=== PATIENT | female | born 1935 | race Caucasian/White ===

== ENCOUNTER 2016-11-24 20:28 | Emergency (ER) | payer OTHER ==
[2016-11-24] MEDS ORDERED: IPRATROPIUM/ALBUTEROL 3 ML DEYVIAL ONE (20:46)
[2016-11-24] MEDS ORDERED: predniSONE 20 MG TAB PO ONE (21:03)
[2016-11-24] MEDS ORDERED: ALBUTEROL 3 ML DEYVIAL IH ONE (21:03)
--- NOTE | 2016-11-24 21:05 | EDPHY ---
H & P Chief Complaint Nursing Narrative: cough since yesterday, audible wheezes heard in triage, tachypneic Time Seen by Provider: 11/24/16 20:56 HPI/ROS: CHIEF COMPLAINT: Shortness of breath HISTORY OF PRESENT ILLNESS: Patient is an 81-year-old female who comes to the Urgent Care complaining of dyspnea. She has had the symptoms since yesterday which she states she began having a cold. She had a coughing took Mucinex but feels that it is not worked. She has not had a fever. She has history of COPD and takes Advair daily. She does not regularly use her rescue inhaler. She does not wear oxygen at home. She denies having any chest pain. REVIEW OF SYSTEMS: Constitutional: denies: chills, fever, recent illness, recent injury EENTM: denies: blurred vision, double vision, nose congestion Respiratory: See HPI Cardiac: denies: chest pain, irregular heart rate, lightheadedness, palpitations Gastrointestinal/Abdominal: denies: abdominal pain, diarrhea, nausea, vomiting, blood streaked stools Genitourinary: denies: dysuria, frequency, hematuria, pain Musculoskeletal: denies: joint pain, muscle pain Skin: denies: lesions, rash, jaundice, bruising Neurological: denies: headache, numbness, paresthesia, tingling, dizziness, weakness Hematologic/Lymphatic: denies: blood clots, easy bleeding, easy bruising Immunologic/allergic: denies: HIV/AIDS, transplant EXAM: GENERAL: Well-appearing, well-nourished and in no acute distress. HEAD: Atraumatic, normocephalic. EYES: Pupils equal round and reactive to light, extraocular movements intact, sclera anicteric, conjunctiva are normal. ENT: TMs normal, nares patent, oropharynx clear without exudates. Moist mucous membranes. NECK: Normal range of motion, supple without lymphadenopathy or JVD. LUNGS: Expiratory wheezing, left lower lobe rhonchi. HEART: Regular rate and rhythm without murmurs, rubs or gallops. ABDOMEN: Soft, nontender, normoactive bowel sounds. No guarding, no rebound. No masses appreciated. BACK: No CVA tenderness, no spinal tenderness, step-offs or deformities EXTREMITIES: Normal range of motion, no pitting or edema. No clubbing or cyanosis. NEUROLOGICAL: Cranial nerves II through XII grossly intact. Normal speech, normal gait. 5/5 strength, normal movement in all extremities, normal sensation PSYCH: Normal mood, normal affect. SKIN: Warm, dry, normal turgor, no visible rashes or lesions. Source: Patient Exam Limitations: No limitations - Medical/Surgical History Hx Asthma: No Hx Chronic Respiratory Disease: Yes Hx Diabetes: No Hx Cardiac Disease: No Hx Renal Disease: No Hx Cirrhosis: No Hx Alcoholism: No Other PMH: COPD - Family History Significant Family History: Hypertension - Social History Smoking Status: Former smoker Alcohol Use: None Drug Use: None Constitutional: Initial Vital Signs Temperature (C) 36.3 C 11/24/16 20:42 Heart Rate 93 11/24/16 20:42 Respiratory Rate 30 H 11/24/16 20:42 Blood Pressure 170/63 H 11/24/16 20:42 O2 Sat (%) 88 L 11/24/16 20:42 O2 Delivery Mode Room Air Allergies/Adverse Reactions: No Known Allergies Allergy (Unverified 02/25/11 13:46) Home Medications: Medication Instructions Recorded Advair 100/50 02/25/11 AZITHROMYCIN [Z-PACK] 250 mg PO DAILY #4 tab 11/24/16 Medical Decision Making - Diagnostics EKG Interpretation: An EKG obtained and was read and documented in trace view. Please see trace view for full reading and report. Sinus rhythm, no acute ischemic changes Imaging: X-ray: chest x-ray was obtained. I viewed the images myself on the PACS system. My interpretation of the images is: Bronchitis. The radiologist interpretation is no pneumonia. ED Course/Re-evaluation: Patient is improved after albuterol treatments. She is saturating in the mid 90s. Send her home with a take-home inhaler and on steroids and a course of azithromycin. She understands and agrees with this plan. She declines further workup or testing at this time. We discussed follow-up in 24 hours for recheck. She and her family agree. Differential Diagnosis: Partial list of the Differential diagnosis considered include but were not limited to; pneumonia, bronchitis, COPD exacerbation and although unlikely based on the history and physical exam, I also considered acute coronary disease , pulmonary embolism, pulmonary edema. I discussed these differential diagnoses and the plan with the patient as well as the usual and expected course. The patient understands that the diagnosis is provisional and that in medicine we are not always correct and that further workup is often warranted. Usual and customary warnings were given. All of the patient's questions were answered. The patient was instructed to return to the emergency department should the symptoms at all worsen or return, otherwise to followup with the physician as we discussed. - Data Points Medications Given: Discontinued Medications Albuterol (Proventil Neb) 3 ml IH EDNOW ONE Stop: 11/24/16 21:04 Last Admin: 11/24/16 21:26 Dose: 3 ml Albuterol Sulfate (Proventil Inh Prepack) 1 mdi TAKEHOME EDNOW ONE Stop: 11/24/16 21:39 Last Admin: 11/24/16 21:46 Dose: 1 mdi Azithromycin (Zithromax) 500 mg PO EDNOW ONE PRN Reason: Protocol Stop: 11/24/16 21:36 Last Admin: 11/24/16 21:46 Dose: 500 mg Prednisone (Prednisone) 60 mg PO EDNOW ONE Stop: 11/24/16 21:04 Last Admin: 11/24/16 21:20 Dose: 60 mg Departure - Departure Disposition: Home, Routine, Self-Care Clinical Impression: COPD exacerbation, Bronchitis Condition: Fair Instructions: COPD (Chronic Obstructive Pulmonary Disease) (ED), Acute Bronchitis (ED) Referrals: Adelita Davis MD [Primary Care Provider] - As per Instructions Prescriptions: AZITHROMYCIN [Z-PACK] 250 mg PO DAILY #4 tab
[2016-11-24 21:22] VITALS: TEMP 98.1
--- NOTE | 2016-11-24 21:23 | DX ---
PA and Lateral Chest Indication: Dyspnea. Cough and shortness of breath. Comparison: None Findings: The hyperinflated lungs have diffuse mild peribronchial thickening. No mass, edema, consoli dation or effusion. Heart size is upper normal for technique. Impression: COPD. No pneumonia or failure.
--- NOTE | 2016-11-24 21:23 | CPEKG ---
Heart Rate: 91 RR Interval: 659 P-R Interval: 168 QRSD Interval: 78 QT Interval: 360 QTC Interval: 443 P [place]: 84 QRS [place]: 81 T Wave [place]: 35 EKG Severity - BORDERLINE ECG - EKG Impression: SINUS RHYTHM EKG Impression: PROBABLE LEFT ATRIAL ABNORMALITY EKG Impression: BORDERLINE RIGHT AXIS DEVIATION Electronically Signed By: Catarino Summers 24-Nov-2016 21:39:58
[2016-11-24] MEDS ORDERED: AZITHROMYCIN 250 MG TAB PO ONE (21:35)
[2016-11-24] MEDS ORDERED: ALBUTEROL INH PREPACK MDI TAKEHOME ONE (21:38)
[2016-11-24 22:14] VITALS: BP 126/76; PULSE 101; RESP 28; O2SAT 91
== END 2016-11-24 22:10 | disposition home or self-care (01) ==
LOC: CED 20:28
DX: J44.0 Chronic obstructive pulmonary disease with (acute) lower respiratory infection (principal)
CPT/HCPCS: 71020; 93005; G0463

== ENCOUNTER → 2017-04-23 | Outpatient (CLI) | payer OTHER | LOC: BHCLAF 11:30 | PROVIDERS: ATTEND Internal Medicine Cardiovascular Disease | DX: J44.9 Chronic obstructive pulmonary disease, unspecified (principal); I35.0 Nonrheumatic aortic (valve) stenosis; I34.0 Nonrheumatic mitral (valve) insufficiency | CPT/HCPCS: 93306-PO ==

== ENCOUNTER → 2017-04-23 | Outpatient (CLI) | payer OTHER | LOC: CIMAGING 12:01 | PROVIDERS: ATTEND Internal Medicine Pulmonary Disease | DX: J44.9 Chronic obstructive pulmonary disease, unspecified (principal) | CPT/HCPCS: 71020-PO ==